=== PATIENT | female | born 1945 | race Asian ===

== ENCOUNTER 2018-11-08 13:23 | Emergency (ER) | payer MEDICARE, OTHER ==
[~2018-11-08] VITALS: Ht 152.4 cm; Wt 49.9 kg
[2018-11-08 13:54] VITALS: BP 136/66
--- NOTE | 2018-11-08 14:30 | NUR ---
ED Nurse Note: received pt.
--- NOTE | 2018-11-08 14:32 | Emergency Room Report ---
History of Present Illness General Chief Complaint: Flu Like Symptoms Present Illness HPI 73-year-old female presents to the emergency department sent by [facility] facility reporting flulike symptoms. Upon arrival patient denies symptoms other than transient episode of shakiness in the right hand which lasted no more than 5 minutes. She denies cough she reports she had some chills this morning she denies fatigue, muscle or joint aches, sore throat, headache, history of seizures, recent travel or ill contacts. Patient denies fevers. Patient has significant past medical history paperwork from [facility] does have diagnosis of dementia, HTN, and hyperlipidemia. According to the patient is noncompliant with medications. (Shannen Eid) Allergies: Coded Allergies: No Known Allergies (Unverified , 11/08/18) Patient History Past Medical History: see triage record Past Surgical History: none Pertinent Family History: none Now: No Reviewed Nursing Documentation: PMH: Agreed; PSxH: Agreed (Shannen Eid) Review of Systems All Other Systems: negative except mentioned in HPI (Shannen Eid) Physical Exam Vital Signs Date Time Temp Pulse Resp B/P (MAP) Pulse Ox O2 Delivery O2 Flow Rate FiO2 11/08/18 13:06 97.2 100 19 136/66 (89) 94 Room Air Sp02 EP Interpretation: reviewed, normal General Appearance: well appearing, no apparent distress, alert, GCS 15, non- toxic, thin Head: normocephalic, atraumatic Eyes: bilateral eye normal inspection, bilateral eye PERRL ENT: hearing grossly normal, normal voice Neck: full range of motion Respiratory: chest non-tender, lungs clear, normal breath sounds, no rhonchi, no wheezing, speaking full sentences Cardiovascular #1: regular rate, rhythm, no edema Gastrointestinal: non tender, soft Genitourinary: normal inspection, no CVA tenderness Musculoskeletal: back normal, gait/station normal, normal range of motion, non- tender Neurologic: alert, oriented x3, responsive, motor strength/tone normal, sensory intact, normal gait, speech normal, other - holds normal conversations without delay in response. pt. hebrew speaking., grossly normal Psychiatric: judgement/insight normal Skin: normal color, no rash, warm/dry, well hydrated Lymphatic: no adenopathy (Shannen Eid) Medical Decision Making PA Attestation Dr. Cullen is my supervising Physician whom patient management has been discussed with. (Shannen Eid) Medicare Attestation The history of Jayla Ruby has been reviewed and management options for her have been examined and discussed by Alcon Cullen. I have personally examined and interviewed the patient. I do agree with the exam and work-up and the requirement for admission (Alcon Cullen DO) Diagnostic Impression: Primary Impression: Urinary tract infection Qualified Codes: N30.01 - Acute cystitis with hematuria ER Course 73-year-old female presents to the emergency department sent by [facility] reporting flulike symptoms. Upon arrival patient denies symptoms other than transient episode of shakiness in the right hand which lasted no more than 5 minutes. She denies cough she reports she had some chills this morning she denies fatigue, muscle or joint aches, sore throat, headache, history of seizures, recent travel or ill contacts. Patient denies fevers. Patient has significant past medical history paperwork from [facility] does have diagnosis of dementia, HTN, and hyperlipidemia. According to the patient is noncompliant with medications. Ddx considered but are not limited to PNA, UTI, Sepsis, Flu, just to name a few. Vital signs: PT. is FEBRILE and mildly tachycardic at rate of 100 bpm. remaining VS are WNL, H&PE are most consistent with possible UTI infection concern for pyelo vs. sepsis given pt. being febrile ORDERS: -UA: Nitrite positive with many bacteria and elevation of inflammatory markers --consistent with infection CBC: Within normal limits CMP: Within normal limits Lactic acid: Within normal limits Troponin: Within normal limits CK: Within normal limits Cultures: Pending X-ray: Chest unremarkable ED INTERVENTIONS: -Tylenol PO - 1000cc NS -1 g Rocephin IV DISPOSITION: at this time pt. will be admitted to Dr. Ibanez for Pyelonephritis. agreed to admit the pt. and to continue pt. care management. Labs Test 11/08/18 14:36 11/08/18 15:20 Urine Color Pale yellow Urine Appearance Cloudy Urine pH 7 (4.5-8.0) Urine Specific [place] 1.005 (1.005-1.035) Urine Protein 2+ (NEGATIVE) Urine Glucose (UA) Negative (NEGATIVE) Urine Ketones Negative (NEGATIVE) Urine Blood 4+ (NEGATIVE) Urine Nitrite Positive (NEGATIVE) Urine Bilirubin Negative (NEGATIVE) Urine Urobilinogen Normal MG/DL (0.0-1.0) Urine Leukocyte Esterase 3+ (NEGATIVE) Urine RBC 2-4 /HPF (0 - 2) Urine WBC Tntc /HPF (0 - 2) Urine Squamous Epithelial Cells None /LPF (NONE/OCC) Urine Bacteria Many /HPF (NONE) White Blood Count 7.6 K/UL (4.8-10.8) Red Blood Count 3.58 M/UL (4.20-5.40) Hemoglobin 11.1 G/DL (12.0-16.0) Hematocrit 30.9 % (37.0-47.0) Mean Corpuscular Volume 86 FL (80-99) Mean Corpuscular Hemoglobin 30.9 PG (27.0-31.0) Mean Corpuscular Hemoglobin Concent 35.8 G/DL (32.0-36.0) Red Cell Distribution Width 11.4 % (11.6-14.8) Platelet Count 136 K/UL (150-450) Mean Platelet Volume 7.1 FL (6.5-10.1) Neutrophils (%) (Auto) 83.4 % (45.0-75.0) Lymphocytes (%) (Auto) 8.7 % (20.0-45.0) Monocytes (%) (Auto) 6.9 % (1.0-10.0) Eosinophils (%) (Auto) 0.3 % (0.0-3.0) Basophils (%) (Auto) 0.8 % (0.0-2.0) Sodium Level 136 MMOL/L (136-145) Potassium Level 3.7 MMOL/L (3.5-5.1) Chloride Level 101 MMOL/L (98-107) Carbon Dioxide Level 24 MMOL/L (21-32) Anion Gap 11 mmol/L (5-15) Blood Urea Nitrogen 17 mg/dL (7-18) Creatinine 0.9 MG/DL (0.55-1.30) Estimat Glomerular Filtration Rate mL/min (>60) Glucose Level 137 MG/DL (74-106) Lactic Acid Level 0.90 mmol/L (0.4-2.0) Calcium Level 8.6 MG/DL (8.5-10.1) Total Bilirubin 0.7 MG/DL (0.2-1.0) Aspartate Amino Transf (AST/SGOT) 26 U/L (15-37) Alanine Aminotransferase (ALT/SGPT) 20 U/L (12-78) Alkaline Phosphatase 107 U/L (46-116) Total Creatine Kinase 124 U/L (26-308) Creatine Kinase MB 0.7 NG/ML (0.0-3.6) Creatine Kinase MB Relative Index 0.5 Troponin I 0.012 ng/mL (0.000-0.056) Total Protein 7.2 G/DL (6.4-8.2) Albumin 3.8 G/DL (3.4-5.0) Globulin 3.4 g/dL Albumin/Globulin Ratio 1.1 (1.0-2.7) (Shannen Eid) EKG Diagnostic Results EP Interpretation: Dr. Quijano Rate: normal - 84 Rhythm: NSR ST Segments: no acute changes ASA given to the pt in ED: No PA Scribe Text This Interpretation was scribed by CRUZ Eid. (Shannen Eid) Chest X-Ray Diagnostic Results Chest X-Ray Diagnostic Results : Chest X-Ray Ordered: Yes # of Views/Limited/Complete: 1 View Indication: Other - R/O PNA EP Interpretation: Yes PA Xray: Interpretation reviewed, by supervising MD Interpretation: no consolidation, no effusion, no pneumothorax, no acute cardiopulmonary disease Impression: No acute disease Electronically Signed by: Shannen Eid PA-C (Shannen Eid) Last Vital Signs Date Time Temp Pulse Resp B/P (MAP) Pulse Ox O2 Delivery O2 Flow Rate FiO2 11/08/18 13:54 97.2 19 136/66 94 Room Air 11/08/18 13:06 100 (Shannen Eid) Disposition: ADMITTED INPATIENT Condition: Serious Shannen Eid Nov 08, 2018 14:32 Alcon Cullen DO Nov 08, 2018 16:07
[2018-11-08 14:38] VITALS: BP 130/71
--- NOTE | 2018-11-08 14:40 | NUR ---
ED Nurse Note: received pt. pt brought by [facility] from [facility] due to shakeness on right hand for 10 sec. pt denies any pain or SOB. warm to touch. 101 F at the bed side. CRUZ Eid notified. per , pt is forgerful and non-compliant for meds. AAO x3. respirations even and non-labored noted. urine sample sent. will wait for the further order.
[2018-11-08 14:51] LABS: APPEARANCE,URINE CLOUDY; BILIRUBIN, URINE NEGATIVE (NEGATIVE); COLOR,URINE PALE YELLOW; GLUCOSE, URINE (UA) NEGATIVE (NEGATIVE); KETONES,URINE NEGATIVE (NEGATIVE); LEUKOCYTE ESTERASE ,URINE 3+ (NEGATIVE); NITRITE,URINE POSITIVE (NEGATIVE); PH,URINE 7 (4.5-8.0); PROTEIN,URINE 2+ (NEGATIVE); UROBILINOGEN,URINE NORMAL MG/DL (0.0-1.0)
--- NOTE | 2018-11-08 14:55 | NUR ---
ED Nurse Note: [phone] home [phone] 's cell home address [address] [place] [address]. [id number] [facility] [id number]
[2018-11-08] MEDS ORDERED: cefTRIAXone 1 GM in NS 55 ML IVPB ONE (15:15)
[2018-11-08] MEDS ORDERED: AMLODIPINE BES2.5 MG ORAL (15:16)
[2018-11-08] MEDS ORDERED: SERTRALINE HCL25 MG ORAL (15:16)
[2018-11-08] MEDS ORDERED: DONEPEZIL HCL5 M2 ORAL (15:16)
--- NOTE | 2018-11-08 15:18 | NUR ---
ED Nurse Note: Spoke to JOS[facility]LINE [facility] at [facility] and they called 911 as patient c/o sudden shivering, chills during lunch. Patient appeared to be pale at that time. Patient resting in bed without shivering. Reports no pain. Ambulating to the restroom with steady gait.
[2018-11-08 16:04] LABS: BASOPHILS % (AUTO) 0.8 % (0.0-2.0); EOSINOPHILS % (AUTO) 0.3 % (0.0-3.0); HEMATOCRIT 30.9 % (37.0-47.0); HEMOGLOBIN 11.1 G/DL (12.0-16.0); LYMPHOCYTES % (AUTO) 8.7 % (20.0-45.0); MEAN CORPUSCULAR VOLUME 86 FL (80-99); MONOCYTES % (AUTO) 6.9 % (1.0-10.0); NEUTROPHILS % (AUTO) 83.4 % (45.0-75.0); PLATELET COUNT 136 K/UL (150-450); RED BLOOD COUNT 3.58 M/UL (4.20-5.40); RED CELL DISTRIBUTION WIDTH 11.4 % (11.6-14.8); WHITE BLOOD COUNT 7.6 K/UL (4.8-10.8)
[2018-11-08 16:14] LABS: ANION GAP 11 mmol/L (5-15); BLOOD UREA NITROGEN 17 mg/dL (7-18); CALCIUM 8.6 MG/DL (8.5-10.1); CARBON DIOXIDE 24 MMOL/L (21-32); CHLORIDE 101 MMOL/L (98-107); CREATININE 0.9 MG/DL (0.55-1.30); POTASSIUM 3.7 MMOL/L (3.5-5.1); SODIUM 136 MMOL/L (136-145)
[2018-11-08 16:27] LABS: ALANINE AMINOTRANSFERASE 20 U/L (12-78); ALBUMIN 3.8 G/DL (3.4-5.0); ALBUMIN/GLOBULIN RATIO 1.1 (1.0-2.7); ALKALINE PHOSPHATASE 107 U/L (46-116); ASPARTATE AMINO TRANSFERASE 26 U/L (15-37); BILIRUBIN,TOTAL 0.7 MG/DL (0.2-1.0); CKMB 0.7 NG/ML (0.0-3.6); CREATINE KINASE 124 U/L (26-308)
--- NOTE | 2018-11-08 16:29 | Diagnostic Imaging Report ---
Indication: Chest pain Technique: One view of the chest Comparison: none Findings: The heart size is normal. The aorta is tortuous calcified and ectatic. Upper mediastinum is unremarkable Impression: Acute process
[2018-11-08 18:49] VITALS: BP 144/78
--- NOTE | 2018-11-08 18:49 | NUR ---
ED Nurse Note: will wait for the transportation.
--- NOTE | 2018-11-08 19:18 | NUR ---
ED Nurse Note: Reports given to JOSSELINE Vaughan at [facility].
[2018-11-08 21:20] VITALS: BP 138/76
--- NOTE | 2018-11-08 21:20 | NUR ---
ED Nurse Note: VERIFIED W/ ERMD AND GIVEN PT SANDWIH AND JUICE, VSS, RESP EVEN AND UNLABORED ON RA, EXTRA WARM BLANKET PROVIDED FOR COMFORT, PT'S AT THE BEDSIDE, WILL CONT MONITOR. SAFETY PRECAUTIONS IN PLACE.
[2018-11-08 22:50] VITALS: BP 115/76
--- NOTE | 2018-11-08 22:50 | NUR ---
ED Nurse Note: AMBULANCE AT THE BEDSIDE FOR TRANSPORT, PT VSS, RESP EVEN AND UNLABORED ON RA, IV INTACT AND PATENT, REPORT WAS GIVEN BY DAY SHIFT RN SHAYNE TO WILLIAN FROM [facility], CARE ENDORSED TO S-AMBULANCE, PT LEFT W/ ALL BELONGINGS, ACCOMPANIED PT.
--- NOTE | 2018-11-10 19:32 | Cardiology Report ---
APPROVED REPORT EKG Measurement Heart [id number] Normal sinus rhythm Normal ECG
== END 2018-11-08 22:50 | disposition other institution (70) ==
LOC: EDBD 13:23 → EMR 15:55
DX: A49.8 Other bacterial infections of unspecified site (principal); N30.01 Acute cystitis with hematuria; N12 Tubulo-interstitial nephritis, not specified as acute or chronic; I10 Essential (primary) hypertension; E78.5 Hyperlipidemia, unspecified; F03.90 Unspecified dementia, unspecified severity, without behavioral disturbance, psychotic disturbance, mood disturbance, and anxiety
CPT/HCPCS: 36415; 71045; 80053; 81003; 82550; 82553; 83605; 84484; 85025; 87040; 87086; 87181; 93005; 96361; 96365; 99284; J0696